=== PATIENT | female | born 1985 | race Two or more races ===

== ENCOUNTER 2017-01-16 15:46 | Emergency (ER) | payer BC ==
--- NOTE | 2017-01-16 16:11 | ED ---
Throat Pain/Nasal Congestion - HPI Summary HPI Summary: 31F presents with weakness, muscle aches, sinus congestion, cough for 3 days. She denies any fever, chest pain, SOB, abdominal pain, n/v/d. She denies any one else being sick. She states that her appetite is about the same. She has only taken mucinex for symptoms. She denies any history of respiratory illness. She admits to a headache. - History of Current Complaint Chief Complaint: EDUpperRespComplaint Time Seen by Provider: 01/16/17 15:54 - Allergies/Home Medications Allergies/Adverse Reactions: Allergies Allergy/AdvReac Type Severity Reaction Status Date / Time No Known Allergies Allergy Verified 01/16/17 15:48 PMH/Surg Hx/FS Hx/Imm Hx Endocrine/Hematology History: Denies: Hx Anticoagulant Therapy Respiratory History: Denies: Hx Asthma Infectious Disease History: No Infectious Disease History: Denies: Traveled Outside the [place] in Last 30 Days - Family History Known Family History: Negative: Cardiac Disease - Social History Alcohol Use: None Substance Use Type: Reports: None Smoking Status (MU): Never Smoked Tobacco Review of Systems Negative: Fever Positive: Nasal Discharge. Negative: Sore Throat, Ear Ache Negative: Chest Pain Positive: Cough. Negative: Shortness Of Breath Positive: Headache, Weakness All Other Systems Reviewed And Are Negative: Yes Physical Exam Triage Information Reviewed: Yes Vital Signs On Initial Exam: Initial Vitals Temp Pulse Resp BP Pulse Ox 99.6 F 81 20 143/101 99 01/16/17 15:48 01/16/17 15:48 01/16/17 15:48 01/16/17 15:48 01/16/17 15:48 Vital Signs Reviewed: Yes Appearance: Positive: Well-Appearing - anxious Skin: Positive: Warm, Dry Head/Face: Positive: Normal Head/Face Inspection Eyes: Positive: Normal, Conjunctiva Clear ENT: Positive: Normal ENT inspection, Nasal congestion, Nasal drainage, TMs normal Neck: Positive: Supple, Nontender, No Lymphadenopathy Respiratory/Lung Sounds: Positive: Clear to Auscultation, Breath Sounds Present Cardiovascular: Positive: Normal, RRR Abdomen Description: Positive: Nontender, Soft Bowel Sounds: Positive: Present Diagnostics - Vital Signs Vital Signs Temp Pulse Resp BP Pulse Ox 01/16/17 16:05 98.7 F 107 24 128/82 97 01/16/17 15:48 99.6 F 81 20 143/101 99 - Laboratory Lab Statement: Any lab studies that have been ordered have been reviewed, and results considered in the medical decision making process. EENT Course/Dx - Course Course Of Treatment: 31F presents with cold like symptoms for 3 days. admits to body aches, weakness, nasal congestion, and dry cough. on exam nasal congestion present, lungs clear, flu negative, explained that do need see need to place IV and get labs because does not appear dehyrdated. explained that has upper respiratory infection and will treat supportively, patient understands and agrees with plan - Differential Diagnoses Differential Diagnoses: Sinusitis, URI/Bronchitis - Diagnoses Provider Diagnoses: Upper respiratory infection Discharge - Discharge Plan Condition: Good Disposition: HOME Prescriptions: Benzonatate CAP* [Tessalon 100 MG CAP*] 100 mg PO TID #15 cap Fluticasone NASAL SPRAY 50MCG* [Flonase NASAL SPRAY 50MCG*] 2 spray BOTH NARES DAILY #1 btl Patient Education Materials: Upper Respiratory Infection (ED) Referrals: Non Staff,Doctor [Primary Care Provider] - Additional Instructions: Use Tessalon three times a day for cough Use flonase two spray twice a day Use humidifier or place warm bowls of water around the room Take Tylenol or ibuprofen every 6 hours for muscle aches Follow up with primary care physician in 5 days Return to ED if develop chest pain or shortness of breath or any new or worsening symptoms
[2017-01-16] MEDS ORDERED: Acetaminophen TAB* 325 MG PO ONE (16:34)
[2017-01-16 16:59] VITALS: BP 140/96
== END 2017-01-16 16:58 | disposition home or self-care (01) ==
LOC: ED 15:46
DX: J06.9 Acute upper respiratory infection, unspecified (principal)
CPT/HCPCS: 87502; 99282; A9270-GY